=== PATIENT | male | born 1990 | race Hispanic/Latino ===

== ENCOUNTER 2024-06-07 22:53 | Emergency (ER) | payer SELFPAY ==
[~2024-06-07] VITALS: Ht 180.3 cm; Wt 117.9 kg
[2024-06-07 23:32] LABS: BASOPHILS # (AUTO) 0.04 K/uL (0.00-0.20); BASOPHILS % (AUTO) 0.4 % (0.0-5.0); EOSINOPHILS # (AUTO) 0.03 K/uL (0.00-0.70); EOSINOPHILS % (AUTO) 0.3 % (0.0-8.0); HEMATOCRIT 44.9 % (42-54); IMMATURE GRANULOCYTE ABSOLUTE 0.03 K/uL (0-1); LYMPHOCYTES # (AUTO) 1.5 K/uL (1.0-4.8); MEAN CORPUSCULAR HEMOGLOBIN 31.4 pg (27.0-33.0); MEAN CORPUSCULAR HGB CONC 34.5 g/dL (32.0-36.0); MEAN CORPUSCULAR VOLUME 91.1 fL (79-99); MONOCYTES # (AUTO) 0.5 K/uL (0.1-1.0); MONOCYTES % (AUTO) 5.1 % (3.0-13.0); NEUTROPHILS # (AUTO) 7.7 K/uL (1.8-7.7); NEUTROPHILS % (AUTO) 78.9 % (40.0-77.0); PLATELET COUNT (AUTO) 215 K/uL (130-400); RED BLOOD CELL COUNT(AUTO) 4.93 MIL/uL (4.50-6.20); RED CELL DISTRIBUTION WIDTH 12.3 % (11.0-15.5); WHITE BLOOD COUNT (AUTO) 9.8 K/uL (4.8-10.8)
[2024-06-07] MEDS: NITROGLYCERIN 1GM OINT 1 INCH/1GM TD ONE (23:33)
[2024-06-07] MEDS: 0.9%NACL 1000ML 1,000 ML IV ONE (23:33)
[2024-06-07] MEDS: ASPIRIN 325MG TAB PO ONE (23:33)
[2024-06-08 00:15] LABS: CREATININE 0.9 mg/dL (0.5-1.3); MAGNESIUM 1.6 mg/dL (1.80-2.40)
[2024-06-08 00:19] LABS: POTASSIUM 3.2 mmol/L (3.5-5.1)
[2024-06-08] MEDS: PoTASSium BIcarbonate/CIT AC 25 MEQ TABLET.EFF PO ONE (00:46)
[2024-06-08] MEDS: hydrOXYzine 25 MG TABLET PO ONE (00:46)
[2024-06-08] MEDS: MAGNESIUM OXIDE 400 MG TABLET PO ONE (00:46)
[2024-06-08 00:58] LABS: AMPHET/METH SCREEN,URINE NEGATIVE (NEGATIVE); BARBITURATE SCREEN, URINE NEGATIVE (NEGATIVE); BENZODIAZEPINES SCREEN,URINE NEGATIVE (NEGATIVE); CANNABINOID SCREEN,URINE NEGATIVE (NEGATIVE); COCAINE SCREEN,URINE NEGATIVE (NEGATIVE); OPIATE SCREEN,URINE NEGATIVE (NEGATIVE); PHENCYCLIDINE SCREEN,URINE NEGATIVE (NEGATIVE)
[2024-06-08] MEDS ORDERED: HYDR-3421 PO (01:32)
[2024-06-08 02:00] VITALS: BP 120/69; PULSE 95; RESP 20; TEMP 98.2; O2SAT 97
== END 2024-06-08 02:05 | disposition home or self-care (01) ==
LOC: EDH 22:53
DX: F41.9 Anxiety disorder, unspecified (principal); R07.89 Other chest pain; E83.42 Hypomagnesemia; E87.6 Hypokalemia
CPT/HCPCS: 99284; 71045; 83735; 84484; 80048; 80305; 83690; 85025; 36415; 93005; J7030